=== PATIENT | male | born 1930 | race Caucasian/White ===

== ENCOUNTER 2018-12-14 10:53 | Observation (INO) ==
[2018-12-14] MEDS ORDERED: 0.9 % Sodium Chloride 1,000 ML IVC ONE (11:00)
--- NOTE | 2018-12-14 11:04 | Emergency Department Note ---
Disposition Clinical Impression: Frail elderly, New onset seizure, Abnormal EKG Disposition: Admitted As Inpatient [facility] Provider[facility] - Forms: ED Satisfaction Letter Time of Disposition: 13:54 General Adult HPI - General Chief complaint: ED Neuro Symptoms/Deficit Stated complaint: seizure Time Seen by Provider: 12/14/18 10:59 Source: patient, EMS Limitations: no limitations - History of Present Illness HPI Narrative: 88 [facility] regarding [facility] activity. They thought perhaps he had a seizure. The patient had been at the clinic for his yearly evaluation. Some blood was drawn. He was then going to the pharmacy and with sitting down he developed violent shaking of his extremities. He remained conscious and did not fall. There was concern for seizure-like act ivity. There is no history of loss of urine or stool. The patient describes general shaking of his arms and legs which were uncontrolled. There is no history of headache neck stiffness rash fever or confusion. No slurred speech facial drooping unilateral arm or leg weakness or numbness or bowel or bladder problems. The patient denies any chest pain shortness breath abdominal pain vomiting or diarrhea. No acute back pain. No syncope. He was in his usual good state of health prior to the event. He is not known to be diabetic. He has no history of brain tumor stroke or CAD. No diabetes. Accu-Chek in the emergency Department 96. The patient denies a history of brain tumors. He is n ot anticoagulated. There is no history of prior neurologic disease or spinal pathology. Pain Scale: 0 - Related Data Home Medications Medication Instructions Recorded Confirmed BuPROPion XL (24 HR) [Wellbutrin 150 mg PO DAILY 12/14/18 12/14/18 XL] Cetirizine HCl [Zyrtec] 10 mg PO DAILY PRN 12/14/18 12/14/18 Cholecalciferol (D-3) [Vitamin D] 1,000 unit PO DAILY 12/14/18 12/14/18 Lactobacillus Acidophilus 1 each PO DAILY 12/14/18 12/14/18 [Acidophilus Lactobacilli] Loperamide HCl [Anti-Diarrheal] 2 mg PO TID PRN 12/14/18 12/14/18 Mesalamine [Apriso] 4 cap PO DAILY 12/14/18 12/14/18 [place]-3/Dha/Epa/Fish Oil [Fish Oil 2 each PO DAILY 12/14/18 12/14/18 1,000 mg Softgel] Sildenafil Citrate [Viagra] 100 mg PO DAILY PRN 12/14/18 12/14/18 Trazodone HCl 100 mg PO HS 12/14/18 12/14/18 Vitamin E 400 unit PO DAILY 12/14/18 12/14/18 Allergies Allergy/AdvReac Type Severity Reaction Status Date / Time No Known Allergies Allergy Verified 04/18/17 19:55 All systems ED: reviewed and negative except as stated. Past Medical History - Past Medical History Medical history: Reports: no medical history Psychiatric history: Reports: no psych history - Social History Smoking Status: Never smoker Smokeless Tobacco Status: No Alcohol use: Reports: none Drug use: Reports: none Physical Exam - General Limitations: no limitations General appearance: alert, in no apparent distress - Head Head exam: atraumatic, normocephalic, normal inspection - Eye Eye exam: Present: normal appearance, PERRL, EOMI - ENT ENT exam: normal exam, normal oropharynx, mucous membranes moist - Neck Neck exam: Present: normal inspection, full ROM, trachea midline - Chest Chest inspection: Present: normal inspection, symmetric chest wall rise - Respiratory Respiratory exam: Present: normal lung sounds bilaterally. Absent: respiratory distress, prolonged expiratory phase - Cardiovascular Cardiovascular exam: Present: regular rate, normal rhythm, normal heart sounds - Abdominal Exam Abdominal exam: Present: soft, Non-Tender, normal bowel sounds. Absent: tende rness, distention, guarding, rebound, rigidity, trauma - Extremities Exam Extremities exam: Present: normal inspection, full ROM, normal capillary refill. Absent: tenderness, pedal edema, joint swelling, calf tenderness - Back Exam Back exam: Present: normal inspection, full ROM. Absent: tenderness, CVA tenderness (R), CVA tenderness (L), vertebral tenderness - Neurological Exam Neurological exam: Present: alert, oriented X3, CN II-XII intact. Absent: motor sensory deficit - Psychiatric Psychiatric exam: Present: normal affect, normal mood - Skin Skin exam: Present: warm, dry, intact, normal color Course Course Narrative: In the emergency department the patient occasionally demonstrated tremulousness or shaking of all extremities but remained fully conscious and conversant. These are brief episodes were not sustained and not focal in nature. Vital Signs Temperature 98.6 F 12/14/18 10:57 Pulse Rate 61 12/14/18 10:57 Respiratory Rate 14 12/14/18 10:57 Blood Pressure 194/91 12/14/18 10:57 O2 Sat by Pulse Oximetry 99 12/14/18 10:57 Temperature 98.6 F 12/14/18 10:57 Pulse Rate 63 12/14/18 12:08 Respiratory Rate 17 12/14/18 12:08 Blood Pressure 169/74 12/14/18 12:08 O2 Sat by Pulse Oximetry 98 12/14/18 12:08 Oxygen Delivery Oxygen Delivery Room Air Medical Decision Making - MDM Narrative Medical decision making narrative: The patient is generally healthy. He is active at home and does not have a history of seizure disorder. He has been displaying recurrent tonic clonic activity in the ED without sustained activity. He has been conscious and alert during the events. Radiographic studies EKG and laboratory studies reveal no emergent abnormality. The patient appears to be stable. Based on his abnormal neurologic status thought it would be appropriate to admit the patient to the hospital, subsequently I consulted with the neurology service and [facility] came to the emergency department and evaluated the patient and feels the patient will require admission. I discussed the case with the hospitalist on-call who has accepted the patient to his care. The patient is agreeable. Neurology will act as sql server consultant. - Lab Data Lab results reviewed: Yes I reviewed the patient's lab results. Result diagrams: 12/14/18 Unknown 12/14/18 Unknown Lab Results 12/14/18 12/14/18 12/14/18 Range/Units 11:16 11:32 11:32 WBC (4.3-11.1) K/mcL RBC (4.19-5.50) M/mcL Hgb (12.9-16.9) g/dL Hct (37.5-50.1) % MCV (83.0-100.0) fL MCH (28.0-33.3) pg MCHC (31.6-35.5) g/dL RDW (11.5-14.5) % Plt Count (140-400) K/mcL MPV (9.4-12.4) fL Immature Gran % (0-4) % Seg Neutrophils % % Lymphocytes % % Monocytes % % Eosinophils % % Basophils % % Neutrophils # (1.6-8.9) K/mcL Lymphocytes # (0.6-4.6) K/mcL Monocytes # (0.0-1.3) K/mcL Eosinophils # (0.0-0.6) K/mcL Basophils # (0.0-0.2) K/mcL PT (9.4-12.1) Seconds INR APTT (26.0-36.0) Seconds Sodium (136-145) mEq/L Potassium (3.5-5.1) mEq/L Chloride (98-107) mEq/L Carbon Dioxide (23-29) mEq/L BUN (8-23) mg/dL Creatinine (0.70-1.30) mg/dL Est GFR ( Amer) (> 60) Est GFR (Non-Af Amer) (> 60) BUN/Creatinine Ratio (6-26) Glucose (70-105) mg/dL Calculated Osmolality (280-300) Lactic Acid 0.9 (0.5-2.2) mmol/L Calcium (8.6-10.3) mg/dL Total Bilirubin (0.3-1.0) mg/dL AST (13-39) Units/L ALT (7-52) Units/L Alkaline Phosphatase (34-104) Units/L Troponin I (< 0.04) ng/mL C-Reactive Protein (Less than 10) mg/L Serum Total Protein (6.4-8.9) g/dL Albumin (3.5-5.7) g/dL Globulin (2.4-3.5) g/dL Albumin/Globulin Ratio (1.1-2.2) Prolactin (3.00-14.70) ng/mL Urine Color Yellow (Yellow) Urine Clarity Clear (Clear) Urine pH 6.0 (5.0-8.0) pH Units Ur Specific [place] 1.019 (1.010-1.025) Urine Protein Negative (Neg-Trace) mg/dL Urine Glucose (UA) Normal (Normal) mg/dL Urine Ketones Negative (Negative) mg/dL Urine Blood Negative (Negative) Urine Nitrite Negative (Negative) Urine Bilirubin Negative (Negative) Urine Urobilinogen Normal (Normal) mg/dL Ur Leukocyte Esterase Negative (Negative) Urine Opiates Screen Negative (Clhbgq=413) ng/mL Ur Buprenorphine Scrn Negative (Cutoff=5) ng/mL Ur Barbiturates Screen Negative (Mzjris=399) ng/mL Ur Phencyclidine Scrn Negative (Cutoff=25) ng/mL Ur Amphetamines Screen Negative (Ygmpej=0997) ng/mL U Benzodiazepines Scrn Negative (Zzswfr=707) ng/mL Urine Cocaine Screen Negative (Cutoff= 300) ng/mL U Marijuana (THC) Screen Negative (Cutoff = 50) ng/mL Ur Drug Screen Interp See Below 12/14/18 12/14/18 12/14/18 Range/Units Unknown Unknown Unknown WBC 5.7 (4.3-11.1) K/mcL RBC 4.40 (4.19-5.50) M/mcL Hgb 14.0 (12.9-16.9) g/dL Hct 41.3 (37.5-50.1) % MCV 93.9 (83.0-100.0) fL MCH 31.8 (28.0-33.3) pg MCHC 33.9 (31.6-35.5) g/dL RDW 13.5 (11.5-14.5) % Plt Count 166 (140-400) K/mcL MPV 9.7 (9.4-12.4) fL Immature Gran % 0.2 (0-4) % Seg Neutrophils % 63.9 % Lymphocytes % 20.2 % Monocytes % 9.9 % Eosinophils % 5.6 % Basophils % 0.2 % Neutrophils # 3.6 (1.6-8.9) K/mcL Lymphocytes # 1.2 (0.6-4.6) K/mcL Monocytes # 0.6 (0.0-1.3) K/mcL Eosinophils # 0.3 (0.0-0.6) K/mcL Basophils # 0.0 (0.0-0.2) K/mcL PT 11.4 (9.4-12.1) Seconds INR 1.0 APTT 34.0 (26.0-36.0) Seconds Sodium 139 (136-145) mEq/L Potassium 3.8 (3.5-5.1) mEq/L Chloride 103 (98-107) mEq/L Carbon Dioxide 31 H (23-29) mEq/L BUN 19 (8-23) mg/dL Creatinine 1.07 (0.70-1.30) mg/dL Est GFR ( Amer) > 60 (> 60) Est GFR (Non-Af Amer) > 60 (> 60) BUN/Creatinine Ratio 18 (6-26) Glucose 99 (70-105) mg/dL Calculated Osmolality 290 (280-300) Lactic Acid (0.5-2.2) mmol/L Calcium 9.3 (8.6-10.3) mg/dL Total Bilirubin 0.8 (0.3-1.0) mg/dL AST 20 (13-39) Units/L ALT 12 (7-52) Units/L Alkaline Phosphatase 55 (34-104) Units/L Troponin I < 0.03 (< 0.04) ng/mL C-Reactive Protein < 5 (Less than 10) mg/L Serum Total Protein 5.9 L (6.4-8.9) g/dL Albumin 4.0 (3.5-5.7) g/dL Globulin 1.9 L (2.4-3.5) g/dL Albumin/Globulin Ratio 2.1 (1.1-2.2) Prolactin 3.48 (3.00-14.70) ng/mL Urine Color (Yellow) Urine Clarity (Clear) Urine pH (5.0-8.0) pH Units Ur Specific [place] (1.010-1.025) Urine Protein (Neg-Trace) mg/dL Urine Glucose (UA) (Normal) mg/dL Urine Ketones (Negative) mg/dL Urine Blood (Negative) Urine Nitrite (Negative) Urine Bilirubin (Negative) Urine Urobilinogen (Normal) mg/dL Ur Leukocyte Esterase (Negative) Urine Opiates Screen (Yznnwv=407) ng/mL Ur Buprenorphine Scrn (Cutoff=5) ng/mL Ur Barbiturates Screen (Ummkjq=699) ng/mL Ur Phencyclidine Scrn (Cutoff=25) ng/mL Ur Amphetamines Screen (Scmejm=7186) ng/mL U Benzodiazepines Scrn (Bkvdog=469) ng/mL Urine Cocaine Screen (Cutoff= 300) ng/mL U Marijuana (THC) Screen (Cutoff = 50) ng/mL Ur Drug Screen Interp - Radiology Data Radiology results reviewed: Yes I reviewed the patient's radiology results.
[2018-12-14] MEDS ORDERED: 0.9 % Sodium Chloride 1,000 ML ONE (11:06)
[2018-12-14] MEDS ORDERED: *HR* LORazepam 2 MG/ML VIAL IVP ONE ×2 (11:19→11:20)
[2018-12-14 11:25] LABS: Basophils % 0.2 %; Eosinophils # 0.3 K/mcL (0.0-0.6); Eosinophils % 5.6 %; Hematocrit 41.3 % (37.5-50.1); Immature Granulocytes % 0.2 % (0-4); Lymphocytes # 1.2 K/mcL (0.6-4.6); Lymphocytes % 20.2 %; Mean Corpuscular HGB Conc 33.9 g/dL (31.6-35.5); Mean Corpuscular Hemoglobin 31.8 pg (28.0-33.3); Mean Corpuscular Volume 93.9 fL (83.0-100.0); Mean Platelet Volume 9.7 fL (9.4-12.4); Monocytes # 0.6 K/mcL (0.0-1.3); Monocytes % 9.9 %; Neutrophils # 3.6 K/mcL (1.6-8.9); Platelet Count 166 K/mcL (140-400); Red Cell Distribution Width 13.5 % (11.5-14.5); Segmented Neutrophils % 63.9 %; White Blood Count 5.7 K/mcL (4.3-11.1)
[2018-12-14 11:41] LABS: Prothrombin Time 11.4 Seconds (9.4-12.1)
[2018-12-14 11:46] LABS: Alanine Aminotransferase 12 Units/L (7-52); Albumin/Globulin Ratio 2.1 (1.1-2.2); Alkaline Phosphatase 55 Units/L (34-104); Aspartate Amino Transferase 20 Units/L (13-39); BUN/Creatinine Ratio 18 (6-26); Bilirubin,Total 0.8 mg/dL (0.3-1.0); Blood Urea Nitrogen 19 mg/dL (8-23); C-Reactive Protein < 5 mg/L (Less than 10); Calcium 9.3 mg/dL (8.6-10.3); Carbon Dioxide 31 mEq/L (23-29); Chloride 103 mEq/L (98-107); Globulin 1.9 g/dL (2.4-3.5); Glucose 99 mg/dL (70-105); Osmolality,Calculated 290 (280-300); Potassium 3.8 mEq/L (3.5-5.1); Sodium 139 mEq/L (136-145); Total Protein 5.9 g/dL (6.4-8.9); Troponin I < 0.03 ng/mL (< 0.04); eGFR For African Americans > 60 (> 60); eGFR For Non-African Americans > 60 (> 60)
[2018-12-14 11:51] LABS: Amphetamine Screen,Urine Negative ng/mL (Cutoff=1000); Barbiturate Screen,Urine Negative ng/mL (Cutoff=200); Benzodiazepines Screen,Urine Negative ng/mL (Cutoff=200); Cannabinoid Screen,Urine Negative ng/mL (Cutoff = 50); Cocaine Screen,Urine Negative ng/mL (Cutoff= 300); Opiate Screen,Urine Negative ng/mL (Cutoff=300); Phencyclidine Screen,Urine Negative ng/mL (Cutoff=25)
[2018-12-14 11:54] LABS: Bilirubin,Urine Negative (Negative); Blood,Urine Negative (Negative); Clarity,Urine Clear (Clear); Color,Urine Yellow (Yellow); Glucose,Urine (UA) Normal (Normal); Ketones,Urine Negative (Negative); Leukocyte Esterase,Urine Negative (Negative); Nitrite,Urine Negative (Negative); Protein,Urine Negative (Neg-Trace); Specific Gravity,Urine 1.019 (1.010-1.025); Urobilinogen,Urine Normal (Normal)
[2018-12-14 12:04] LABS: Prolactin 3.48 ng/mL (3.00-14.70)
[2018-12-14] MEDS ORDERED: traMADol 50 MG TABLET PO PRN (13:45)
[2018-12-14] MEDS ORDERED: Naloxone 0.4 MG/ML INJ IVP PRN (13:45)
[2018-12-14] MEDS ORDERED: *HR* LORazepam 2 MG/ML VIAL IVP PRN (13:47)
--- NOTE | 2018-12-14 14:12 | Internal Med History&Physical ---
Date of Encounter: 12/14/18 Time of Encounter: 14:06 Internal Medicine - H&P: HPI Chief complaint: Seizure like activity Admitted From: Home Plans for Post Hospital Care: Home History of present illness: Mr. Crawford is a 88 year old male no significant PMH. Patient presented to the ED from the [place] due to seizure like activity. Information obtained from the patient and one of his neighbor who was with him this morning. They reported the patient was today in the [place] for his routine check up. After he was done with the evaluation on his way to the pharmacy he started having violent, tonic clonic movements, this movements last more than 10 minutes. During this episode as per the neighbor the patient could not talk. He denies loosing consciousness, urinary or bowel incontinence. Then the patient had another episode which lasted until he got the [facility] from the [place]. As per the neighbor the patient was able to speak 45 minutes after this episodes. Patient denies palpitation, headache, nausea or vomiting before or after the this episodes. Patient denies alcohol abuse. Denies fever, or chills. Denies focal weakness, or change in speech. Past Med Surg Social Fam HX - Past Medical History Medical history: no medical history Psychiatric history: no psych history - Social History Smoking Status: Never smoker Smokeless Tobacco Status: No Alcohol use: none Drug use: none Internal Medicine - H&P: Meds BuPROPion XL (24 HR) [Wellbutrin XL] 150 mg PO DAILY 12/14/18 [History] Cetirizine HCl [Zyrtec] 10 mg PO DAILY PRN 12/14/18 [History] Cholecalciferol (D-3) [Vitamin D] 1,000 unit PO DAILY 12/14/18 [History] Lactobacillus Acidophilus [Acidophilus Lactobacilli] 1 each PO DAILY 12/14/18 [History] Loperamide HCl [Anti-Diarrheal] 2 mg PO TID PRN 12/14/18 [History] Mesalamine [Apriso] 4 cap PO DAILY 12/14/18 [History] [place]-3/Dha/Epa/Fish Oil [Fish Oil 1,000 mg Softgel] 2 each PO DAILY 12/14/18 [History] Sildenafil Citrate [Viagra] 100 mg PO DAILY PRN 12/14/18 [History] Trazodone HCl 100 mg PO HS 12/14/18 [History] Vitamin E 400 unit PO DAILY 12/14/18 [History] Allergy/AdvReac Type Severity Reaction Status Date / Time No Known Allergies Allergy Verified 04/18/17 19:55 All Systems PM: A 10-system review of systems was performed and is negative for pertinent findings except as documented above in the HPI. - Constitutional Constitutional: no chills, no lethargy, no weakness - EENT Nose, mouth and throat: no dental pain - Cardiovascular Cardiovascular ROS IM: no chest pain, no edema, no lightheadedness, no orthopnea - Respiratory Respiratory: no cough - Gastrointestinal Gastrointestinal: no abdominal pain, no nausea, no vomiting - Genitourinary Genitourinary ROS male: no dysuria, no urinary incontinence, no urinary urgency - Musculoskeletal Musculoskeletal ROS IM: no muscle weakness, no stiffness - Neurological Neurological ROS: tremor(s), no dizziness, no focal weakness, no headache(s) - Psychiatric Psychiatric: no irritability - Endocrine Endocrine IM: no cold intolerance, no excessive sweating - Hematologic/Lymphatic Hematologic/Lymphatic: no lymphadenopathy - Allergic/Immunologic Allergic/Immunologic: no GI upset with certain foods - Constitutional Vitals: Temp Pulse Resp BP Pulse Ox 98.6 F 63 17 169/74 98 12/14/18 10:57 12/14/18 12:08 12/14/18 12:08 12/14/18 12:08 12/14/18 12:08 Exam: Vitals: Reviewed General: Alert and oriented x4. In no acute distress Skin: Normal color, no rash, no lesions. HEENT: EOM, pupils equal, round and reactive. Cardiovascular: RRR, normal S1 & S2, no rubs, murmurs or gallops. Lungs: CTA b/l, no wheezes or crackles. Abdomen: Soft, non-tender, no rigidity. Extremities:No edema or tenderness. strength 5/5 in the upper and lower ext Neurological: Normal cognition and motor skills. CN II-XII intact Rest of the physical exam is non contributory Internal Med - H&P Results - Labs CBC & Chem 7: 12/14/18 Unknown 12/14/18 Unknown Labs: Short CBC 12/14/18 Range/Units Unknown WBC 5.7 (4.3-11.1) K/mcL Hgb 14.0 (12.9-16.9) g/dL Hct 41.3 (37.5-50.1) % Plt Count 166 (140-400) K/mcL Neutrophils # 3.6 (1.6-8.9) K/mcL BMP 12/14/18 Unknown Sodium 139 Potassium 3.8 Chloride 103 Carbon Dioxide 31 H BUN 19 Creatinine 1.07 Glucose 99 Calcium 9.3 Cardiac Enzymes 12/14/18 Range/Units Unknown Troponin I < 0.03 (< 0.04) ng/mL Liver Function 12/14/18 Range/Units Unknown Total Bilirubin 0.8 (0.3-1.0) mg/dL AST 20 (13-39) Units/L ALT 12 (7-52) Units/L Alkaline Phosphatase 55 (34-104) Units/L Albumin 4.0 (3.5-5.7) g/dL Urine 12/14/18 Range/Units 11:32 Urine Color Yellow (Yellow) Urine Clarity Clear (Clear) Urine pH 6.0 (5.0-8.0) pH Units Ur Specific [place] 1.019 (1.010-1.025) Urine Protein Negative (Neg-Trace) mg/dL Urine Glucose (UA) Normal (Normal) mg/dL - Impressions ITS Impressions Head CT 12/14/18 11:00 IMPRESSION: No acute intracranial abnormality. D/ / Krishna Patterson MD / Krishna Patterson MD Interpreting Provider: Krishna Patterson MD Chest X-Ray 12/14/18 11:03 IMPRESSION: No acute cardiopulmonary process. D/ / Liliam Dutta MD / Liliam Dutta MD Interpreting Provider: Liliam Dutta MD - Diagnostic Studies Chest x-ray Status: image reviewed by me (No acute findings ) - Assessment and Plan (1) Witnessed seizure-like activity Current Visit: Yes Status: Acute Assessment and plan: patient with witnessed tonic clonic movements lasting >30 associated with aphas ia for 45 minutes Plan - will place patient under observation for new onset seizure work up and r/o possible cva - MR of the head/brain w/o contrast ordered - Labetalol 1mg/IV Q5mins PRN for seizures like activity - Aspirin 81mg/PO ordered - EEG - Urine tox - Neurology consulted, recommendations appreciated - started on keppra 500mg/PO BID. (2) DVT prophylaxis Current Visit: Yes Status: Acute Assessment and plan: Heparin subq. (3) HTN (hypertension) Current Visit: Yes Status: Acute Assessment and plan: Patient not on any anti-hypertensive medications in the outpatients settings. elevated BP due to possible seizures like activities. will add hydralazine 5mg/IV Q6HR PRN for SBP >180 Qualifiers: Hypertension type: unspecified Qualified Code(s): I10 - Essential (primary) hypertension - Time Spent With Patient Total time spent is greater than 50% in coordination of care (as documented) at patient's floor/unit and/or counseling patient: Greater than 35 minutes (45)
--- NOTE | 2018-12-14 14:37 | Neurology - Consult Note ---
<Calvin Thompson J - Last Filed: 12/15/18 08:16> Date of Encounter: 12/15/18 Time of Encounter: 14:30 Assessment and Plan (1) New onset seizure Current Visit: Yes Status: Acute Suspected new onset seizures Witnessed tonic-clonic activity and postictal period with aphasia Neurologically he is intact without any focal findings on exam No prior medical hx reported CT head unremarkable LAB w/u also withing expected range; UDS negative, UA negative as well Proceed with seizure w/u PLAN: Non-con MRI brain to evaluate for organic cause of seizure activity and to r/o any cerebral ischemia EEG Ativan PRN for seizure activity Seizure precautions No need for antiepileptic drugs at this time History of Present Illness Chief complaint: seizure-like activity HPI: Mr. Crawford is a 88 year old male with no PMH who presents to the ED from the [facility] with witnessed seizure-like activity. He was at the [facility] for an annual exam. While there he was witnessed experiencing violent tonic-clonic activity. His neighbor who was with him reports that the tonic-clonic activity last approximately 5-10 minutes duratio. The neighbor reports that throughout these events Mr. Crawford remained conscious but was unable to respond or follow commands. Apparently he had a recurrent of the same sx in the ED for an unknown duration. The patient denies any recent illnesses, fevers, chills, headaches, neck stiffness or pain, visual disturbances, dysphagia, dysarthria, parasthesias or focal motor weakness. He denies any loss of consciousness with todays events. A CT of the head was obtained and was negative for hemorrhage or infarct. He was hypertensive on admission with SBP in the 190's. UDS is negative, UA is negative and CBC and chemistry panel are within expected range. Past Med Surg Social Fam HX - Past Medical History Medical history: no medical history Psychiatric history: no psych history - Social History Smoking Status: Never smoker Smokeless Tobacco Status: No Alcohol use: none Drug use: none - Family History Mother Hx Family Cancer: Yes Medications and Allergies BuPROPion XL (24 HR) [Wellbutrin XL] 150 mg PO DAILY 12/14/18 [History] Cetirizine HCl [Zyrtec] 10 mg PO DAILY PRN 12/14/18 [History] Cholecalciferol (D-3) [Vitamin D] 1,000 unit PO DAILY 12/14/18 [History] Lactobacillus Acidophilus [Acidophilus Lactobacilli] 1 each PO DAILY 12/14/18 [History] Loperamide HCl [Anti-Diarrheal] 2 mg PO TID PRN 12/14/18 [History] Mesalamine [Apriso] 4 cap PO DAILY 12/14/18 [History] [place]-3/Dha/Epa/Fish Oil [Fish Oil 1,000 mg Softgel] 2 each PO DAILY 12/14/18 [History] Sildenafil Citrate [Viagra] 100 mg PO DAILY PRN 12/14/18 [History] Trazodone HCl 100 mg PO HS 12/14/18 [History] Vitamin E 400 unit PO DAILY 12/14/18 [History] Allergy/AdvReac Type Severity Reaction Status Date / Time No Known Allergies Allergy Verified 04/18/17 19:55 All Systems: The remainder of the systems were reviewed and are negative Review of Systems: REVIEW OF SYSTEMS GENERAL: Negative for any nausea, vomiting, fevers, chills NEUROLOGIC: Negative for any blurry vision, blind spots, double vision, facial asymmetry, dysphagia, dysarthria, hemiparesis, hemisensory deficits, vertigo, ataxia, unilateral weakness or numbness/tingling HEENT: Negative for any head trauma, neck trauma Physical Examination - Vital Signs Vital Signs: Initial Vital Signs Temp Pulse Resp BP Pulse Ox 98.6 F 61 14 194/91 99 12/14/18 10:57 12/14/18 10:57 12/14/18 10:57 12/14/18 10:57 12/14/18 10:57 - Exam Exam: Examination: General Examination: *CONSTITUTIONAL: Alert and oriented x3, no acute distress *GENERAL APPEARANCE OF PATIENT appears healthy and well groomed *EYES: pupils equal, round, reactive to light and accommodation, conjunctiva clear without masses or ulcerations, fundi normal. *CARDIOVASCULAR: no peripheral edema, distal temperature normal, dorsalis pedis pulses normal. Refer to vital signs * MUSCULOSKELETAL: *GAIT AND STATION: Deferred *ASSESSMENT OF MUSCLE STRENGTH IN THE UPPER AND LOWER EXTREMITIES bilateral deltoid, bicep, tricep, medical screener strength, hip flexors ,anterior tibialis, dorsoflexion of the foot 5/5 *MUSCLE TONE IN THE UPPER AND LOWER EXTREMITIES normal, no tremors on exam. No abnormal movements, fasciculations or atrophy identified. Neurological: *ORIENTATION to person, situation, time and place *LANGUAGE AND FUNCTION no significant aphasia or dysarthia was noted. *ATTENTION AND CONCENTRATION are normal *LANGUAGE FUNCTION no significant aphasia or dysarthia was noted. *FUND OF KNOWLEDGE aware of current events, past history, vocabulary *MENTAL attention span and concentration normal. *CN II optic fundi were normal, no papilledema noted. *CN III,IV, PERRLA extraocular eye movements were full, no nystagmus and no ptosis noted. *CN V shows normal sensation and jaw opens symmetrically. *CN VII shows normal facial movement symmetrically, upper and lower bilaterally. *CN VIII shows no significant hearing loss on exam *CN IX-X palate elevated symmetrically *CN XI normal strength in the sternocleidomastoid muscles, symmetrical shoulder shrugging. *CN XII tongue protruded in the midline, with normal strength and movement. *SENSORY EXAMINATION light touch intact *REFLEXES: deep tendon reflexes were normal and symmetrical , grade 2/4 diffusely, no pathological reflexes were noted. *CEREBELLAR TESTING normal finger to nose, heel/knee/sandhu *PAIN LEVEL 0/10 Results - Laboratory Findings CBC and BMP: 12/14/18 Unknown 12/14/18 Unknown Abnormal lab findings: Abnormal lab results Carbon Dioxide 31 mEq/L (23-29) H 12/14/18 Unknown Serum Total Protein 5.9 g/dL (6.4-8.9) L 12/14/18 Unknown Globulin 1.9 g/dL (2.4-3.5) L 12/14/18 Unknown - Diagnostic Findings Additional findings: CT/CT head/brain wo con IMPRESSION: No acute intracranial abnormality. Consult Discharge Plan - Plan [facility]: [facility] Care Provider[facility] - <Carter West I - Last Filed: 12/15/18 09:58> Date of Encounter: 12/14/18 Assessment and Plan (1) New onset seizure Current Visit: Yes Status: Acute I have personally performed a face to face diagnostic evaluation, including HP I, EXAM, which is included in the Assesment and plan, which was discussed with Calvin Thompson CNP, I agree with the above outlined documentation. This patient who noted to have dizziness witnessed jerking activity without any altered consciousness lasted about 10-15 minutes and during this time patient is alert and awake and able to recall the whole event without any postictal state and now back to his baseline with no focal findings on examination. Certainly seizures are in the differential but seems to be less likely except that it was a simple partial seizures though it be very unusual for a simple partial seizures to last that long Other possibility could be of movement disorder sometime extrapyramidal side effect from medication also in the differential. We will review the EEG as well as an MRI of the brain hold off on any antiepileptic medication at this time Carter West MD. Neurology History of Present Illness HPI: Mr. Crawford is a 88 year old male All Systems: The remainder of the systems were reviewed and are negative Physical Examination - Vital Signs Vital Signs: Initial Vital Signs Temp Pulse Resp BP Pulse Ox 98.6 F 61 14 194/91 99 12/14/18 10:57 12/14/18 10:57 12/14/18 10:57 12/14/18 10:57 12/14/18 10:57 Results - Laboratory Findings CBC and BMP: 12/15/18 01:26 12/15/18 01:26 Abnormal lab findings: Abnormal lab results Carbon Dioxide 31 mEq/L (23-29) H 12/14/18 Unknown Serum Total Protein 5.9 g/dL (6.4-8.9) L 12/14/18 Unknown Globulin 1.9 g/dL (2.4-3.5) L 12/14/18 Unknown
--- NOTE | 2018-12-14 15:46 | Electrocardiograph Report ---
[address] [place], [place] [address] Test Date: 2018-12-14 Pat Name: [facility] Department: [id number] Room: 3B43 Gender: M Intensive Care Nurse: : [id number] Requested By: Brody Lane Order Number: [id number] Reading MD: Vandana Tipton Measurements Intervals [place] Rate: 81 P: 70 [place]: 180 QRS: 34 QRSD: 97 T: 62 QT: 417 QTc: 485 Interpretive Statements Sinus rhythm Atrial premature complex Borderline prolonged QT interval Electronically Signed On 12-14-2018 15:45:44 EDT by Vandana Tipton
--- NOTE | 2018-12-14 15:51 | EEG/EMG/Oth Biometrics Report ---
EEG Procedure Report EEG Procedure: Routine EEG Procedure Note: This is a routine 21 channel digital EEG performed utilizing 10- 20 international electrode placement system. FINDINGS: Patient has a predominant waking background frequency that is average voltage 8 to 10 Hertz alpha activity in the posterior region, normal amplitude symmetrical over the both hemispheres reactive to eyes opening and closing. During the EEG patient noted to have some beta activity predominantly in the frontal leads likely medication side effect and particularly benzos and barbiturates record continued to show alpha activity intermixed with some theta off and on, no abnormal activity recorded, predominantly no evidence of any spike wave discharges or any lateralizing abnormalities, Photic stimulation and hyperventilation did not produce any convulsive response. Intermittent EMG artifacts were noted. Stage II sleep was not achieved. Impression: Normal awake drowsy electroencephalogram. The exception of meat activity which is a nonspecific pattern mostly related to the medication side effect earlier No epileptiform discharges or any other paroxysmal activities noted. ( Please note that normal EEG does not exclude the diagnosis of seizures or epilepsy, clinical correlation is suggested)
[2018-12-14] MEDS: levETIRAcetam 250 MG TABLET PO SCH ×2 (16:12→21:49)
[2018-12-14] MEDS: *HR* Heparin 5,000 UNIT/ML VIAL SQ SCH ×2 (16:13→21:49)
[2018-12-14] MEDS ORDERED: traZODone 50 MG TABLET PO SCH (21:00)
[2018-12-15 02:18] LABS: Basophils % 0.3 %; Eosinophils # 0.4 K/mcL (0.0-0.6); Hematocrit 37.4 % (37.5-50.1); Hemoglobin 12.5 g/dL (12.9-16.9); Immature Granulocytes % 0.2 % (0-4); Lymphocytes # 1.5 K/mcL (0.6-4.6); Lymphocytes % 25.3 %; Mean Corpuscular HGB Conc 33.4 g/dL (31.6-35.5); Mean Corpuscular Hemoglobin 31.2 pg (28.0-33.3); Mean Corpuscular Volume 93.3 fL (83.0-100.0); Mean Platelet Volume 10.2 fL (9.4-12.4); Monocytes # 0.5 K/mcL (0.0-1.3); Monocytes % 8.7 %; Neutrophils # 3.3 K/mcL (1.6-8.9); Platelet Count 160 K/mcL (140-400); Red Blood Count 4.01 M/mcL (4.19-5.50); Red Cell Distribution Width 13.5 % (11.5-14.5); Segmented Neutrophils % 58.5 %; White Blood Count 5.7 K/mcL (4.3-11.1)
[2018-12-15 02:38] LABS: BUN/Creatinine Ratio 16 (6-26); Blood Urea Nitrogen 17 mg/dL (8-23); Calcium 8.7 mg/dL (8.6-10.3); Carbon Dioxide 29 mEq/L (23-29); Chloride 105 mEq/L (98-107); Glucose 91 mg/dL (70-105); Osmolality,Calculated 291 (280-300); Phosphorous 2.9 mg/dL (2.7-4.5); Sodium 140 mEq/L (136-145); eGFR For African Americans > 60 (> 60); eGFR For Non-African Americans > 60 (> 60)
[2018-12-15] MEDS: *HR* Heparin 5,000 UNIT/ML VIAL SQ SCH ×2 (05:20→13:49)
[2018-12-15] MEDS: levETIRAcetam 250 MG TABLET PO SCH (05:20)
[2018-12-15] MEDS ORDERED: BuPROPion XL (24 HR) 150 MG TABLET PO SCH (09:00)
[2018-12-15] MEDS ORDERED: Aspirin Enteric Coated 81 MG Tablet PO SCH (09:00)
--- NOTE | 2018-12-15 10:18 | Neurology Progress Note ---
<Calvin Thompson - Last Filed: 12/15/18 09:46> Date of Encounter: 12/15/18 Time of Encounter: 09:46 Assessment and Plan (1) New onset seizure Current Visit: Yes Status: Acute Neurology cs to [facility] for suspected seizures Witnessed tonic-clonic seizure-like activity Today his neurological exam does not reveal any focal findings CT head and MRI brain both unremarkable for acute process; specifically no organic cause of seizure found EEG- for epileptiform discharges No recurrence of events since admission; low suspicion for true seizures May d/c at the discretion of the primary team; neurology will sign off He does not need epileptic drugs. If seizure-like activity returns he has been instructed to return to the ED Subjective Principal diagnosis: concern for seizures Interval history: Seen in f/u for seizure-like activity x 2 witnessed events yesterday. He was not given antiepileptic drugs throughout this stay and did not have any return of seizure-like activity. MRI brain and EEG both unremarkable. No new neuro concerns reported. Objective - Constitutional Vitals: Temp Pulse Resp BP Pulse Ox 97.7 F 54 15 127/72 93 12/15/18 08:18 12/15/18 08:18 12/15/18 08:18 12/15/18 08:18 12/15/18 08:18 Exam: Examination: General Examination: *CONSTITUTIONAL: Alert and oriented x3, no acute distress *GENERAL APPEARANCE OF PATIENT appears healthy and well groomed *EYES: pupils equal, round, reactive to light and accommodation, conjunctiva clear without masses or ulcerations, fundi normal. *CARDIOVASCULAR: no peripheral edema, distal temperature normal, dorsalis pedis pulses normal. Refer to vital signs * MUSCULOSKELETAL: *GAIT AND STATION: Deferred *ASSESSMENT OF MUSCLE STRENGTH IN THE UPPER AND LOWER EXTREMITIES bilateral deltoid, bicep, tricep, information management specialist strength, hip flexors ,anterior tibialis, dorsoflexion of the foot 5/5 *MUSCLE TONE IN THE UPPER AND LOWER EXTREMITIES normal, no tremors on exam. No abnormal movements, fasciculations or atrophy identified. Neurological: *ORIENTATION to person, situation, time and place *LANGUAGE AND FUNCTION no significant aphasia or dysarthia was noted. *ATTENTION AND CONCENTRATION are normal *LANGUAGE FUNCTION no significant aphasia or dysarthia was noted. *FUND OF KNOWLEDGE aware of current events, past history, vocabulary *MENTAL attention span and concentration normal. *CN II optic fundi were normal, no papilledema noted. *CN III,IV, PERRLA extraocular eye movements were full, no nystagmus and no ptosis noted. *CN V shows normal sensation and jaw opens symmetrically. *CN VII shows normal facial movement symmetrically, upper and lower bilaterally. *CN VIII shows no significant hearing loss on exam *CN IX-X palate elevated symmetrically *CN XI normal strength in the sternocleidomastoid muscles, symmetrical shoulder shrugging. *CN XII tongue protruded in the midline, with normal strength and movement. *SENSORY EXAMINATION light touch intact *REFLEXES: deep tendon reflexes were normal and symmetrical , grade 2/4 diffusely, no pathological reflexes were noted. *CEREBELLAR TESTING normal finger to nose, heel/knee/sandhu *PAIN LEVEL 0/10 Results - Laboratory Findings CBC and BMP: 12/15/18 01:26 12/15/18 01:26 Abnormal lab findings: Abnormal lab results RBC 4.01 M/mcL (4.19-5.50) L 12/15/18 01:26 Hgb 12.5 g/dL (12.9-16.9) L D 12/15/18 01:26 Hct 37.4 % (37.5-50.1) L 12/15/18 01:26 Carbon Dioxide 31 mEq/L (23-29) H 12/14/18 Unknown Serum Total Protein 5.9 g/dL (6.4-8.9) L 12/14/18 Unknown Globulin 1.9 g/dL (2.4-3.5) L 12/14/18 Unknown Consult Discharge Plan - Plan [facility]errals: [facility]Primary Care Provider[facility] - <Carter West I - Last Filed: 12/15/18 10:39> Date of Encounter: 12/15/18 Assessment and Plan (1) New onset seizure Current Visit: Yes Status: Acute I have personally performed a face to face diagnostic evaluation, including HPI, EXAM, which is included in the Assesment and plan, which was discussed with Calvin Thompson CNP, I agree with the above outlined documentation. Patient could follow-up with neurology in 2-3 weeks Discussed in detail with the patient and his power of commercial attorney Carter West MD. Neurology Objective - Constitutional Vitals: Temp Pulse Resp BP Pulse Ox 97.7 F 54 15 127/72 93 12/15/18 08:18 12/15/18 08:18 12/15/18 08:18 12/15/18 08:18 12/15/18 08:18 Results - Laboratory Findings CBC and BMP: 12/15/18 01:26 12/15/18 01:26 Abnormal lab findings: Abnormal lab results RBC 4.01 M/mcL (4.19-5.50) L 12/15/18 01:26 Hgb 12.5 g/dL (12.9-16.9) L D 12/15/18 01:26 Hct 37.4 % (37.5-50.1) L 12/15/18 01:26 Carbon Dioxide 31 mEq/L (23-29) H 12/14/18 Unknown Serum Total Protein 5.9 g/dL (6.4-8.9) L 12/14/18 Unknown Globulin 1.9 g/dL (2.4-3.5) L 12/14/18 Unknown
[2018-12-15 15:45] VITALS: BP 126/64
--- NOTE | 2018-12-15 15:57 | Discharge Summary ---
Orders not resulted at time of discharge: Pending orders 12/14/18 10:57 Culture,Blood [BC] Stat Date of Encounter: 12/15/18 Time of Encounter: 15:54 - Discharge Diagnosis (1) Witnessed seizure-like activity Priority: Primary Status: Acute (2) HTN (hypertension) Priority: Secondary Status: Acute Qualifiers: Hypertension type: essential hypertension Qualified Code(s): I10 - Essential (primary) hypertension Hospital course: Mr. Crawford is a 88 year old male with no relevant past history no history of seizures who presented after witnessed tonic-clonic activity in the setting of negative EEG and normal brain MRI. No recurrence of seizure-like activity during hospital stay. Exact etiology of movements unknown but neurology consulted and thought this did not represent actual seizures and did not recommend AED initiation. Will follow up with primary care provider. - Time Spent with Patient Total time spent providing and/or coordinating discharge services: 65 minutes Time spent: Greater than 30 minutes - Discharge Medications Prescriptions: Continued Trazodone HCl 100 mg PO HS Sildenafil Citrate [Viagra] 100 mg PO DAILY PRN PRN Reason: erection Mesalamine [Apriso] 4 cap PO DAILY Loperamide HCl [Anti-Diarrheal] 2 mg PO TID PRN PRN Reason: diarrhea Lactobacillus Acidophilus [Acidophilus Lactobacilli] 1 each PO DAILY [place]-3/Dha/Epa/Fish Oil [Fish Oil 1,000 mg Softgel] 2 each PO DAILY Cholecalciferol (D-3) [Vitamin D] 1,000 unit PO DAILY Cetirizine HCl [Zyrtec] 10 mg PO DAILY PRN PRN Reason: allergies BuPROPion XL (24 HR) [Wellbutrin Xl] 150 mg PO DAILY Vitamin E 400 unit PO DAILY Home Medications: BuPROPion XL (24 HR) [Wellbutrin Xl] 150 mg PO DAILY 12/14/18 [History] Cetirizine HCl [Zyrtec] 10 mg PO DAILY PRN 12/14/18 [History] Cholecalciferol (D-3) [Vitamin D] 1,000 unit PO DAILY 12/14/18 [History] Lactobacillus Acidophilus [Acidophilus Lactobacilli] 1 each PO DAILY 12/14/18 [History] Loperamide HCl [Anti-Diarrheal] 2 mg PO TID PRN 12/14/18 [History] Mesalamine [Apriso] 4 cap PO DAILY 12/14/18 [History] [place]-3/Dha/Epa/Fish Oil [Fish Oil 1,000 mg Softgel] 2 each PO DAILY 12/14/18 [History] Sildenafil Citrate [Viagra] 100 mg PO DAILY PRN 12/14/18 [History] Trazodone HCl 100 mg PO HS 12/14/18 [History] Vitamin E 400 unit PO DAILY 12/14/18 [History] Allergies/Adverse Reactions: Allergy/AdvReac Type Severity Reaction Status Date / Time No Known Allergies Allergy Verified 04/18/17 19:55 Date of admission: 12/14/18 14:10 [facility] care physician: [facility] Consults: 12/14/18 13:54 Consult to Neurology [CONS] Stat Consulting Provider: [facility] Reason for Consult: Seizure like activity Calvin Time Notified: 13:55 Call Completed: Yes 12/14/18 15:24 Consult to Interpret Exam [CONS] Routine Consulting Provider: Carter West I Consult to Interpret Exam: Interpret EEG - Constitutional Vitals: Temp Pulse Resp BP Pulse Ox 97.8 F 62 15 126/64 93 12/15/18 15:44 12/15/18 15:44 12/15/18 15:44 12/15/18 15:44 12/15/18 15:44 Exam: General: Ill-appearing and in no acute distress HEENT: No erythema of posterior pharynx. No exudates. Lymphatics: No mandibular or cervical lymphadenopathy Cardiovascular: RRR. No murmurs. No chest wall tenderness. Lungs: Clear to auscelltation bilaterally. Regular chest rise. Abdomen: Non-tender. No rebound or gaurding. Nl bowel sounds. Extremities: No edema. 2+ pulses radial and pedal pulses Skin: No rahses, abrasions, or contusions. Nl cap refill. Psych: Nl attention. A&Ox3 Neuro: grey percher II-XII intact. 5/5 strength. Sensation to light touch and pinprick intact. - Patient Status Disposition: Home, Self-Care Condition: Good Functional capacity at discharge: independent ambulation Overall status at discharge: patient is back to baseline - Discharge Instructions Follow Up With: [facility] [Primary Care Provider] - - Diet and Activity Activity: increase activity as tolerated Diet: regular diet
== END 2018-12-15 16:34 | disposition home or self-care (01) ==
LOC: 3BNU 10:53 → EMEROOARM 10:53 → SUATTDRO 14:10 → 3BNU 15:05
PROVIDERS: ADMIT Internal Medicine; ATTEND Internal Medicine